=== PATIENT | male | born 1960 | race American Indian/Alaskan Native ===

== ENCOUNTER 2017-09-11 10:52 | Emergency (ER) | payer MEDICARE ==
[2017-09-11 11:29] LABS: Eosinophils % (Auto) 0.4 % (0.0-4.3)
[2017-09-11 11:40] LABS: BUN/Creatinine Ratio 15; Blood Urea Nitrogen 12 mg/dL (9-20); Calcium 9.9 mg/dL (8.4-10.2); Carbon Dioxide 31 mmol/L (22-30); Glucose 114 mg/dL (75-100)
[2017-09-11 11:41] LABS: Anion Gap 14 mmol/L; Basophils % (Auto) 1.6 % (0.0-1.8); Chloride 100.4 mmol/L (98-107); Mean Corpuscular HGB Conc 32 % (32-34); Mean Corpuscular Hemoglobin 27 pg (28-32); Mean Corpuscular Volume 84 fl (84-94); Platelet Count 180 K/mm3 (140-440); Potassium 4.4 mmol/L (3.6-5.0); Red Blood Count 5.58 M/mm3 (3.65-5.03); Red Cell Distribution Width 14.2 % (13.2-15.2); Sodium 141 mmol/L (137-145); White Blood Count 5.6 K/mm3 (4.5-11.0)
--- NOTE | 2017-09-11 13:46 | XRay Report ---
ROUTINE CHEST, TWO VIEWS: HISTORY: Chest pain. The trachea, heart, mediastinal contour, lung cordova and bony thorax are unremarkable. IMPRESSION: Unremarkable chest x-ray.
--- NOTE | 2017-09-11 17:40 | Emergency Department Report ---
ED Chest Pain HPI - General Chief Complaint: Chest Pain Stated Complaint: CHEST PAINS Time Seen by Provider: 09/11/17 17:23 Source: patient, EMS Mode of arrival: Ambulatory Limitations: No Limitations - History of Present Illness MD Complaint: chest pain -: days(s) (yesterday) Onset: during rest Pain Location: left chest Pain Radiation: none Severity: mild Severity scale (0 -10): 3 Quality: aching Consistency: intermittent Improves With: medication-other Worsens With: other (Medication Non-compliance) Context: other (Out of his HCTZ for two weeks. Found an old RX from 10/02 that had a few pills. He took one this morning, which improved his symptoms.) - Related Data Home Medications Medication Instructions Recorded Confirmed Last Taken Aspirin [Aspirin BABY CHEW TAB] 81 mg PO DAILY 10/22/16 10/22/16 Unknown Haloperidol [Haldol] 10 mg PO QHS 10/22/16 10/22/16 Unknown Hydrochlorothiazide [HCTZ] 25 mg PO QDAY 10/22/16 10/22/16 Unknown [place] Carbonate [Eskalith] 300 mg PO TID 10/22/16 10/22/16 Unknown Olanzapine [ZyPREXA] 20 mg PO QHS 10/22/16 10/22/16 Unknown amLODIPine [Norvasc] 5 mg PO DAILY 10/22/16 10/22/16 Unknown Allergies Allergy/AdvReac Type Severity Reaction Status Date / Time No Known Allergies Allergy Unverified 01/30/16 12:59 ED Review of Systems ROS: Stated complaint: CHEST PAINS Other details as noted in HPI ED Past Medical Hx - Past Medical History Previous Medical History?: Yes Hx Hypertension: Yes Hx Psychiatric Treatment: Yes (bipolar; manic depressive) - Surgical History Additional Surgical History: hip replacement - Social History Smoking Status: Current Every Day Smoker Substance Use Type: None - Medications Home Medications: Home Medications Medication Instructions Recorded Confirmed Last Taken Type Aspirin [Aspirin BABY CHEW TAB] 81 mg PO DAILY 10/22/16 10/22/16 Unknown History Haloperidol [Haldol] 10 mg PO QHS 10/22/16 10/22/16 Unknown History Hydrochlorothiazide [HCTZ] 25 mg PO QDAY 10/22/16 10/22/16 Unknown History [place] Carbonate [Eskalith] 300 mg PO TID 10/22/16 10/22/16 Unknown History Olanzapine [ZyPREXA] 20 mg PO QHS 10/22/16 10/22/16 Unknown History amLODIPine [Norvasc] 5 mg PO DAILY 10/22/16 10/22/16 Unknown History ED Physical Exam - General Limitations: No Limitations ED Course Vital Signs 09/11/17 09/11/17 09/11/17 11:05 17:30 17:45 Temperature 98 F Pulse Rate 82 Respiratory 18 16 Rate Blood Pressure 160/109 O2 Sat by Pulse 98 97 98 Oximetry 09/11/17 09/11/17 09/11/17 18:00 18:30 19:00 Temperature Pulse Rate 66 59 L 59 L Respiratory 20 14 16 Rate Blood Pressure 136/93 144/93 145/90 O2 Sat by Pulse 97 97 98 Oximetry - Reevaluation(s) Reevaluation #1: 09/11/17 19:46 Patient and in the hallway requesting the IV be taken out so they can leave. They said they were tired of waiting. Reevaluation #2: 09/11/17 19:47 Discussed risks and benefits of leaving AMA with patient and his along with completing an AMA form. The stated "give me the AMA form so I can sign it". ED Medical Decision Making - Lab Data Result diagrams: 09/11/17 11:09 09/11/17 11:09 Critical care attestation.: If time is entered above; I have spent that time in minutes in the direct care of this critically ill patient, excluding procedure time. ED Disposition Condition: Stable Referrals: PRIMARY CARE, [Primary Care Provider] - 3-5 Days
[2017-09-11 20:05] VITALS: BP 156/100
== END 2017-09-11 19:57 | disposition left against medical advice (07) ==
LOC: ED 10:52
DX: R07.89 Other chest pain (principal); I10 Essential (primary) hypertension; F31.9 Bipolar disorder, unspecified; F17.200 Nicotine dependence, unspecified, uncomplicated
CPT/HCPCS: 36415; 71020; 80048; 83880; 84484; 85025; 93005; 93010; 99284

== ENCOUNTER 2018-03-27 06:24 | Emergency (ER) | payer MEDICARE | END 2018-03-27 07:00 | disposition left against medical advice (07) | LOC: ED 06:24 | DX: M79.673 Pain in unspecified foot (principal); Z53.21 Procedure and treatment not carried out due to patient leaving prior to being seen by health care provider ==

== ENCOUNTER 2018-03-30 12:28 | Emergency (ER) | payer MEDICARE | END 2018-03-30 13:37 | disposition left against medical advice (07) | LOC: ED 12:28 | DX: F99 Mental disorder, not otherwise specified (principal); Z53.21 Procedure and treatment not carried out due to patient leaving prior to being seen by health care provider ==

== ENCOUNTER 2018-11-09 01:16 | Emergency (ER) | payer MEDICARE ==
--- NOTE | 2018-11-09 04:17 | Emergency Department Report ---
ED Extremity Problem HPI - General Chief complaint: Extremity Injury, Lower Stated complaint: BOTH FOOT BURN Time Seen by Provider: 11/09/18 04:12 Source: patient Mode of arrival: Ambulatory Limitations: No Limitations - History of Present Illness Initial comments: 58 year old -[place] male with a past m medical history of bipolar manic depression and chronic pain comes in today complaining of burning pain to both feet 1 month. Patient reports his taken ibuprofen which she reports does not help. Patient also reports that he keeps his feet and tennis shoes all the time. Patient also reports that he was following a dental internship that was shaving off the bumps on his feet. Patient has not seen a dental internship in some time. MD Complaint: extremity pain -: month(s) (1) Location: left, other (feet) History of Same: Yes -: Yes arthralgia Radiation: none Severity scale (0 -10): 10 Quality: burning, aching Consistency: constant Improves with: nothing Worsens with: walking - Related Data Home Medications Medication Instructions Recorded Confirmed Last Taken Aspirin [Aspirin BABY CHEW TAB] 81 mg PO DAILY 10/22/16 10/22/16 Unknown Haloperidol [Haldol] 10 mg PO QHS 10/22/16 10/22/16 Unknown [place] Carbonate [Eskalith] 300 mg PO TID 10/22/16 10/22/16 Unknown Olanzapine [ZyPREXA] 20 mg PO QHS 10/22/16 10/22/16 Unknown amLODIPine [Norvasc] 5 mg PO DAILY 10/22/16 10/22/16 Unknown hydroCHLOROthiazide [HCTZ] 25 mg PO QDAY 10/22/16 10/22/16 Unknown Previous Rx's Medication Instructions Recorded Last Taken Type Acetaminophen [Tylenol Arthritis] 650 mg PO Q8H PRN #20 tablet.er 07/27/18 Unknown Rx Cyclobenzaprine HCl [Flexeril 5 MG 5 mg PO DAILY PRN #5 tab 07/27/18 Unknown Rx TAB] Haloperidol [Haldol] 10 mg PO QHS #7 tablet 07/27/18 Unknown Rx [place] Carbonate [Eskalith] 300 mg PO TID #21 capsule 07/27/18 Unknown Rx Allergies Allergy/AdvReac Type Severity Reaction Status Date / Time No Known Allergies Allergy Unverified 01/30/16 12:59 ED Review of Systems ROS: Stated complaint: BOTH FOOT BURN Other details as noted in HPI Comment: All other systems reviewed and negative Musculoskeletal: other (bilateral feet burning) ED Past Medical Hx - Past Medical History Hx Hypertension: Yes Hx Psychiatric Treatment: Yes (bipolar; manic depressive) Additional medical history: CHRONIC PAIN (HIPS, LEFT WRIST, RIGHT THUMB) - Surgical History Additional Surgical History: Bilateral hip replacement - Social History Smoking Status: Never Smoker Substance Use Type: None - Medications Home Medications: Home Medications Medication Instructions Recorded Confirmed Last Taken Type Aspirin [Aspirin BABY CHEW TAB] 81 mg PO DAILY 10/22/16 10/22/16 Unknown History Haloperidol [Haldol] 10 mg PO QHS 10/22/16 10/22/16 Unknown History [place] Carbonate [Eskalith] 300 mg PO TID 10/22/16 10/22/16 Unknown History Olanzapine [ZyPREXA] 20 mg PO QHS 10/22/16 10/22/16 Unknown History amLODIPine [Norvasc] 5 mg PO DAILY 10/22/16 10/22/16 Unknown History hydroCHLOROthiazide [HCTZ] 25 mg PO QDAY 10/22/16 10/22/16 Unknown History Acetaminophen [Tylenol Arthritis] 650 mg PO Q8H PRN #20 tablet.er 07/27/18 Unknown Rx Cyclobenzaprine HCl [Flexeril 5 MG 5 mg PO DAILY PRN #5 tab 07/27/18 Unknown Rx TAB] Haloperidol [Haldol] 10 mg PO QHS #7 tablet 07/27/18 Unknown Rx [place] Carbonate [Eskalith] 300 mg PO TID #21 capsule 07/27/18 Unknown Rx ED Physical Exam - General Limitations: No Limitations General appearance: alert, in no apparent distress - Head Head exam: Present: atraumatic, normocephalic - Eye Eye exam: Present: EOMI - ENT ENT exam: Present: mucous membranes moist - Neurological Exam Neurological exam: Present: alert, oriented X3 - Psychiatric Psychiatric exam: Present: normal affect, normal mood - Expanded Skin Exam Expanded Type of lesion: Present: other (calluses) Distribution of rash: RLE (feet), LLE (feet) Description of rash: Present: tenderness ED Course Vital Signs 11/09/18 11/09/18 01:22 01:31 Temperature 98.5 F 98.5 F Pulse Rate 90 89 Respiratory 18 16 Rate Blood Pressure 158/97 158/97 O2 Sat by Pulse 98 98 Oximetry ED Medical Decision Making - Medical Decision Making Patient has been evaluated by this provider in fast track. Patient appears to have calluses on both feet at the arches. Patient is flat- footed. Discussed with patient he needs to follow up with a dental internship. Discussed the patient I will refer him to Dr. Campos which is in this area. Patient verbalizes understanding. Critical care attestation.: If time is entered above; I have spent that time in minutes in the direct care of this critically ill patient, excluding procedure time. ED Disposition Clinical Impression: Foot callus Disposition: DC-01 TO HOME OR SELFCARE Is pt being admited?: No Does the pt Need Aspirin: No Condition: Stable Instructions: Arthralgia (ED) Additional Instructions: You are able to take [id number] Tylenol for pain management. Please follow up with podiatry I have listed their information below failure convenience. Continue follow-up with her primary care provider. Referrals: PRIMARY CARE, [Primary Care Provider] - 3-5 Days EDELMIRA CAMPOS DPM [Staff Physician] - 3-5 Days
== END 2018-11-09 05:08 | disposition home or self-care (01) ==
LOC: ED 01:16
CPT/HCPCS: 99282